=== PATIENT | female | born 1950 | race Caucasian/White ===

== ENCOUNTER 2020-02-19 14:10 | Inpatient (IN) | payer MEDICARE, BC ==
[~2020-02-19] VITALS: Ht 160 cm; Wt 81.8 kg
[2020-02-19] MEDS ORDERED: meclizine 12.5mg tablet PO ONE ×2 (15:05→21:50)
[2020-02-19 15:53] LABS: BASOPHILS % (AUTO) 0.4 % (0-1); EOSINOPHILS # (AUTO) 0.1 X10'3 (0-0.9); EOSINOPHILS % (AUTO) 1.1 % (0-6); HEMOGLOBIN 12.8 g/dl (12.0-16.0); LYMPHOCYTES % (AUTO) 14.2 % (21-51); MEAN CORPUSCULAR HEMOGLOBIN 31.4 PG (27.0-31.0); MEAN CORPUSCULAR HGB CONC 33.6 g/dL (33.0-36.5); MEAN CORPUSCULAR VOLUME 93.6 FL (78-98); MEAN PLATELET VOLUME 6.6 FL (7.4-10.4); MONOCYTES # (AUTO) 0.7 X10'3 (0-0.9); MONOCYTES % (AUTO) 9.3 % (2-12); NEUTROPHILS # (AUTO) 5.4 X10'3 (1.8-7.7); PLATELET COUNT 260 X10'3 (140-440); RED BLOOD COUNT 4.06 X10'6 (4.20-5.60); RED CELL DISTRIBUTION WIDTH 13.5 % (11.5-14.5); WHITE BLOOD COUNT 7.3 X10'3 (4.5-11.0)
[2020-02-19 16:10] LABS: ALANINE AMINOTRANSFERASE 101 U/L (12-78); ALBUMIN 3.8 G/DL (3.4-5.0); ALKALINE PHOSPHATASE 68 IU/L (46-116); ANION GAP 11 (8-16); ASPARTATE AMINO TRANSFERASE 56 U/L (10-37); BILIRUBIN,TOTAL 0.5 MG/DL (0.1-1.0); BLOOD UREA NITROGEN 12 MG/DL (7-18); CALCIUM 9.3 MG/DL (8.5-10.1); CHLORIDE 108 MMOL/L (99-107); CREATININE 0.75 MG/DL (0.40-0.90); GLUCOSE 166 MG/DL (70-104); POTASSIUM 3.9 MMOL/L (3.5-5.1); SODIUM 146 MMOL/L (135-145); TOTAL CARBON DIOXIDE 27.4 MMOL/L (24-32); TOTAL PROTEIN 7.5 G/DL (6.4-8.2); eGFR 77 ML/MIN
[2020-02-19] MEDS ORDERED: proCHLORperazine 10 MG/2 ml inj IV ONE (16:30)
[2020-02-19] MEDS ORDERED: diphenhydrAMINE 50 mg/ml inj IV ONE (16:30)
[2020-02-19] MEDS ORDERED: MECL-183 PO (17:33)
[2020-02-19] MEDS ORDERED: LORazepam 2 mg/ml vial IV ONE (17:55)
--- NOTE | 2020-02-19 20:02 | NUR ---
attempted to perform a gate test on the pt. when she sat up, she felt very dizzy and nauseated, pt is now lying down. she was given compazine and ativan.
--- NOTE | 2020-02-19 21:00 | NUR ---
ATTEMPTED TO DO A GATE TEST ON PT, WHEN I SAT HER UP, SHE FELL BACK INTO THE BED, SHE WAS VERY WEAK. ATTEMPTED A SECOND TIME PT COULDN'T HARDLY SIT UP, SHE HAD TO GRAB ON TO SIDE RAIL AND LAY DOWN QUICKLY.
--- NOTE | 2020-02-19 21:30 | NUR ---
PT'S HUSBANDS PHONE NUMBER IS [phone]
[2020-02-19 22:13] LABS: CLARITY,URINE CLEAR (Clear); COLOR,URINE YELLOW (Yellow); GLUCOSE, URINE NEGATIVE (Neg); KETONES,URINE NEGATIVE (Neg); LEUKOCYTE ESTERASE ,URINE NEGATIVE (Neg); NITRITES, URINE NEGATIVE (Neg); OCCULT BLOOD,URINE SMALL (Neg); PROTEIN,URINE TRACE mg/dl (Neg); UROBILINOGEN,URINE 0.2 E.U/dL (0.2-1.0)
[2020-02-19 22:17] LABS: UA COLLECTION TYPE STRAIGHT CATH
[2020-02-19] MEDS ORDERED: B CO1TAB7 PO (22:19)
[2020-02-19] MEDS ORDERED: BENA10TA74 PO (22:19)
[2020-02-19] MEDS ORDERED: CHOL100025 PO (22:19)
[2020-02-19 22:20] LABS: SQUAMOUS EPITHELIAL CELL,UR MODERATE /LPF (FEW)
[2020-02-19 22:21] LABS: MUCUS STRANDS MANY /LPF (Neg)
[2020-02-19 22:24] LABS: BACTERIA,URINE FEW /HPF (Neg); RBC,URINE 0-2 /HPF (0-2); WBC,URINE 0-4 /HPF (0-4)
[2020-02-19] MEDS ORDERED: magnesium hydroxide 30ml (MOM) UD suspension PO PRN (22:55)
[2020-02-19] MEDS ORDERED: acetaminophen 325mg tablet PO PRN (22:55)
[2020-02-19] MEDS ORDERED: ondansetron/PF 4mg/2ml inj IV PRN (22:55)
[2020-02-19] MEDS ORDERED: mag hydrox/Alum hydrox/simeth 30ml oral suspension PO PRN (22:55)
--- NOTE | 2020-02-20 02:20 | NUR ---
RECEIVED PATIENT TO ROOM 4009C AND ASSUMED PATIENT CARE. PATIENT SLEEPY AT THIS TIME.
[2020-02-20 02:31] VITALS: BP 131/68
[2020-02-20 06:00] VITALS: BP 131/76
--- NOTE | 2020-02-20 06:31 | NUR ---
REPORT GIVEN TO RONNIE LOZADA
[2020-02-20] MEDS ORDERED: lisinopril 10 MG tablet PO SCH (08:00)
[2020-02-20] MEDS: heparin, porcine 5000 units/ml vial SQ SCH ×2 (08:00→20:00)
[2020-02-20] MEDS: meclizine 12.5mg tablet PO SCH ×3 (08:13→16:13)
[2020-02-20] MEDS ORDERED: lisinopril 10 MG tablet PO ONE (10:20)
[2020-02-20 11:00] VITALS: BP 141/76
[2020-02-20 18:00] VITALS: BP 102/52
--- NOTE | 2020-02-20 18:20 | NUR ---
RECEIVED REPORT FROM RONNIE LOZADA AND ASSUMED PATIENT CARE
[2020-02-21] MEDS: meclizine 12.5mg tablet PO SCH ×2 (00:04→08:19)
[2020-02-21 02:00] VITALS: BP 103/50
[2020-02-21 06:00] VITALS: BP 145/79
--- NOTE | 2020-02-21 06:25 | NUR ---
Patient in room ORTHO 4009. I have received report from Aimee and had the opportunity to ask questions and assume patient care.
[2020-02-21] MEDS ORDERED: lisinopril 20mg tablet PO SCH (08:00)
[2020-02-21] MEDS: heparin, porcine 5000 units/ml vial SQ SCH (08:00)
[2020-02-21 10:00] VITALS: BP 128/80
--- NOTE | 2020-02-21 10:56 | NUR ---
PAGER ID: [phone] MESSAGE: Good morning, Tiffanie on neuro, Ms. Molina in 6686C, is inquiring about her discharge. Pt anxious to go home, just tano, thank you
--- NOTE | 2020-02-21 14:06 | NUR ---
Reviewed discharge instructions with pt. Pt verbalized understanding. Pt advised she already made an appt with her primary MD. Pt dressed herself and does not c/o dizziness or nausea at this time. Pt was wheeled downstairs to be driven home by her . All of pt's belongings were returned to pt.
--- NOTE | 2020-02-22 15:15 | NUR ---
Case Management DC follow up: LM/VM post DC status, questions, concerns Addendum: 02/22/20 at 1557 by Claribel Jorgensen RN Case Management DC follow up: spoke to pt via telephone. S/P: N/V, vertigo Reports: feeling,"Not too bad, still a little wobbly" pt is grateful for the care received at [facility]. Denies: acute cp, SOB, resp distress, worsening vertigo, syncope,weakness, blurry vision, N/V, DEVLIN, emergent general pain, abd tenderness/distension, fever. Credits [employer] for helping pt feel better. Verbalizes understanding of s/s that warrant 9-11/ER visit for evaluation. Verbalizes understanding of Rx and why prescribed, resumes current Rx/taking as ordered, no ase r/t polypharmacy. Acknowledges need to schedule/keep follow up appts w/ PCP/Short/telemed 02/25/20, referral for [facility] for PT. Needs met, questions answered at DC, no further questions at this time.
== END 2020-02-21 13:50 | disposition home or self-care (01) | DRG 149 ==
LOC: ER 14:11 → ED HOLD 23:35 → ORTHO 4S 02-20 02:20
PROVIDERS: ADMIT Internal Medicine; ATTEND Family Medicine
DX: H81.10 Benign paroxysmal vertigo, unspecified ear (principal); E87.0 Hyperosmolality and hypernatremia; I10 Essential (primary) hypertension; Z88.5 Allergy status to narcotic agent; Z79.899 Other long term (current) drug therapy
CPT/HCPCS: 36415; 70450; 71045; 80053; 81001; 84484; 85025; 87081; 93005; 97110; 97162; 97530; 99285; G0378; J0780; J1200; J2060; J8597

== ENCOUNTER 2020-08-08 12:56 | Emergency (ER) | payer MEDICARE, BC ==
[~2020-08-08] VITALS: Ht 152.4 cm; Wt 86.0 kg
[~2020-08-08 12:56] MED LIST: B CO1TAB7 PO; BENA10TA74 PO; CHOL100025 PO; MECL-183 PO
[2020-08-08 14:17] LABS: CLARITY,URINE CLEAR (Clear); COLOR,URINE AMBER (Yellow); GLUCOSE, URINE NEGATIVE (Neg); KETONES,URINE 15 mg/dl (Neg); LEUKOCYTE ESTERASE ,URINE NEGATIVE (Neg); NITRITES, URINE NEGATIVE (Neg); OCCULT BLOOD,URINE SMALL (Neg); PROTEIN,URINE NEGATIVE (Neg); UA COLLECTION TYPE CLN CATCH MIDSTREAM
[2020-08-08 14:22] LABS: BASOPHILS # (AUTO) 0.1 X10'3 (0-0.2); BASOPHILS % (AUTO) 0.5 % (0-1); EOSINOPHILS # (AUTO) 0.1 X10'3 (0-0.9); EOSINOPHILS % (AUTO) 0.8 % (0-6); HEMATOCRIT 37.1 % (35.0-45.0); HEMOGLOBIN 12.6 g/dl (12.0-16.0); LYMPHOCYTES # (AUTO) 1.7 X10'3 (1.1-4.8); LYMPHOCYTES % (AUTO) 14.2 % (21-51); MEAN CORPUSCULAR HEMOGLOBIN 32.4 PG (27.0-31.0); MEAN CORPUSCULAR VOLUME 95.3 FL (78-98); MEAN PLATELET VOLUME 7.3 FL (7.4-10.4); MONOCYTES # (AUTO) 1.7 X10'3 (0-0.9); NEUTROPHILS # (AUTO) 8.6 X10'3 (1.8-7.7); NEUTROPHILS % (AUTO) 70.5 % (42-75); PLATELET COUNT 344 X10'3 (140-440); RED CELL DISTRIBUTION WIDTH 12.9 % (11.5-14.5); WHITE BLOOD COUNT 12.2 X10'3 (4.5-11.0)
[2020-08-08 14:24] LABS: BACTERIA,URINE FEW /HPF (Neg); MUCUS STRANDS FEW /LPF (Neg); SQUAMOUS EPITHELIAL CELL,UR FEW /LPF (FEW); WBC,URINE 0-4 /HPF (0-4)
[2020-08-08] MEDS ORDERED: ondansetron/PF 4mg/2ml inj IV ONE (14:35)
[2020-08-08] MEDS ORDERED: morphine 4 MG/ML inj SYRINge IV ONE (14:35)
[2020-08-08 14:37] LABS: ALANINE AMINOTRANSFERASE 84 U/L (12-78); ALBUMIN 3.8 G/DL (3.4-5.0); ALBUMIN/GLOBULIN RATIO 0.9 (1.1-1.5); ALKALINE PHOSPHATASE 72 IU/L (46-116); ANION GAP 10 (8-16); ASPARTATE AMINO TRANSFERASE 42 U/L (10-37); BILIRUBIN,TOTAL 1.4 MG/DL (0.1-1.0); BLOOD UREA NITROGEN 13 MG/DL (7-18); BUN/CREATININE RATIO 16.3 (6.6-38.0); CALCIUM 9.2 MG/DL (8.5-10.1); CHLORIDE 99 MMOL/L (99-107); GLUCOSE 98 MG/DL (70-104); POTASSIUM 3.5 MMOL/L (3.5-5.1); SODIUM 137 MMOL/L (135-145); TOTAL CARBON DIOXIDE 28.5 MMOL/L (24-32); TOTAL PROTEIN 7.9 G/DL (6.4-8.2); eGFR 71 ML/MIN
[2020-08-08 14:44] LABS: LIPASE 145 U/L (73-393); MAGNESIUM 1.6 MG/DL (1.5-2.4)
[2020-08-08 16:18] VITALS: BP 135/68
== END 2020-08-08 16:20 | disposition home or self-care (01) ==
LOC: ER 12:57
DX: R10.10 Upper abdominal pain, unspecified (principal); M54.6 Pain in thoracic spine; R74.8 Abnormal levels of other serum enzymes; K76.0 Fatty (change of) liver, not elsewhere classified; I10 Essential (primary) hypertension; Z88.5 Allergy status to narcotic agent; Z79.899 Other long term (current) drug therapy
CPT/HCPCS: 36415; 71045; 74176; 80053; 81001; 83690; 83735; 83880; 84484; 85025; 93005; 96374; 96375; 99285; J2270; J2405

== ENCOUNTER 2022-11-08 20:13 | Emergency (ER) | payer MEDICARE, BC ==
[~2022-11-08] VITALS: Ht 170.2 cm; Wt 81.8 kg
[~2022-11-08 20:13] MED LIST changes: +GABA300C PO; -MECL-183 PO; +MECL-226 PO
[2022-11-08 20:22] VITALS: BP 127/108
[2022-11-08 20:28] LABS: BASOPHILS # (AUTO) 0.1 X10'3 (0-0.2); BASOPHILS % (AUTO) 0.9 % (0-1); EOSINOPHILS # (AUTO) 0.1 X10'3 (0-0.9); HEMATOCRIT 38.4 % (35.0-45.0); HEMOGLOBIN 12.8 g/dl (12.0-16.0); LYMPHOCYTES # (AUTO) 2.6 X10'3 (1.1-4.8); LYMPHOCYTES % (AUTO) 38.9 % (21-51); MEAN CORPUSCULAR HEMOGLOBIN 31.2 PG (27.0-31.0); MEAN CORPUSCULAR HGB CONC 33.2 g/dL (33.0-36.5); MEAN PLATELET VOLUME 5.8 FL (7.4-10.4); MONOCYTES # (AUTO) 0.6 X10'3 (0-0.9); MONOCYTES % (AUTO) 9.2 % (2-12); NEUTROPHILS # (AUTO) 3.3 X10'3 (1.8-7.7); PLATELET COUNT 253 X10'3 (140-440); RED BLOOD COUNT 4.09 X10'6 (4.20-5.60); RED CELL DISTRIBUTION WIDTH 14.9 % (11.5-14.5); WHITE BLOOD COUNT 6.8 X10'3 (4.5-11.0)
[2022-11-08 20:49] LABS: ALANINE AMINOTRANSFERASE 74 U/L (12-78); ALBUMIN 3.6 G/DL (3.4-5.0); ALBUMIN/GLOBULIN RATIO 0.9 (1.1-1.5); ALKALINE PHOSPHATASE 76 IU/L (46-116); ANION GAP 9 (8-16); ASPARTATE AMINO TRANSFERASE 52 U/L (10-37); BILIRUBIN,TOTAL 0.3 MG/DL (0.1-1.0); BLOOD UREA NITROGEN 14 MG/DL (7-18); BUN/CREATININE RATIO 20.9 (6.6-38.0); CALCIUM 8.6 MG/DL (8.5-10.1); CHLORIDE 108 MMOL/L (99-107); CREATININE 0.67 MG/DL (0.40-0.90); GLUCOSE 124 MG/DL (70-104); MAGNESIUM 1.7 MG/DL (1.5-2.4); POTASSIUM 3.5 MMOL/L (3.5-5.1); SODIUM 143 MMOL/L (135-145); TOTAL CARBON DIOXIDE 26.4 MMOL/L (24-32); TOTAL PROTEIN 7.4 G/DL (6.4-8.2); eGFR 87 ML/MIN
== END 2022-11-09 | disposition left against medical advice (07) ==
LOC: ER 20:14
DX: R07.89 Other chest pain (principal); R06.02 Shortness of breath; Z53.21 Procedure and treatment not carried out due to patient leaving prior to being seen by health care provider
CPT/HCPCS: 36415; 71045; 80053; 83735; 83880; 84484; 85025; 93005

== ENCOUNTER 2024-06-06 20:21 | Inpatient (IN) | payer BC, MEDICARE ==
[~2024-06-06] VITALS: Ht 160 cm; Wt 77.0 kg
[~2024-06-06 20:21] MED LIST changes: +ASPI81TA53 PO; +ATOR10TA PO
[2024-06-06] MEDS: normal saline 1000ml 1,000 ML IV STA (23:11)
[2024-06-06] MEDS: ondansetron/PF 4mg/2ml inj IV STA (23:24)
[2024-06-06 23:26] LABS: BASOPHILS % (AUTO) 0.5 % (0-1); EOSINOPHILS % (AUTO) 0 % (0-6); HEMATOCRIT 41.4 % (35.0-45.0); HEMOGLOBIN 13.9 g/dl (12.0-16.0); LYMPHOCYTES # (AUTO) 1.3 X10'3 (1.1-4.8); LYMPHOCYTES % (AUTO) 15.8 % (21-51); MEAN CORPUSCULAR HEMOGLOBIN 30.7 PG (27.0-31.0); MEAN CORPUSCULAR HGB CONC 33.4 g/dL (33.0-36.5); MEAN CORPUSCULAR VOLUME 91.9 FL (78-98); MEAN PLATELET VOLUME 6.5 FL (7.4-10.4); MONOCYTES # (AUTO) 0.5 X10'3 (0-0.9); MONOCYTES % (AUTO) 6.1 % (2-12); NEUTROPHILS # (AUTO) 6.4 X10'3 (1.8-7.7); NEUTROPHILS % (AUTO) 77.6 % (42-75); PLATELET COUNT 132 X10'3 (140-440); RED BLOOD COUNT 4.51 X10'6 (4.20-5.60); WHITE BLOOD COUNT 8.3 X10'3 (4.5-11.0)
[2024-06-06 23:38] LABS: ALANINE AMINOTRANSFERASE 29 U/L (12-78); ALBUMIN 3.6 G/DL (3.4-5.0); ALKALINE PHOSPHATASE 62 IU/L (46-116); ANION GAP 24 (8-16); ASPARTATE AMINO TRANSFERASE 42 U/L (10-37); BILIRUBIN,TOTAL 1.3 MG/DL (0.1-1.0); BLOOD UREA NITROGEN 22 MG/DL (7-18); BUN/CREATININE RATIO 23.9 (10.0-20.0); CALCIUM 8.3 MG/DL (8.5-10.1); CHLORIDE 99 MMOL/L (99-107); CREATININE 0.92 MG/DL (0.40-0.90); GLUCOSE 72 MG/DL (70-104); POTASSIUM 4.1 MMOL/L (3.5-5.1); SODIUM 142 MMOL/L (135-145); TOTAL CARBON DIOXIDE 19.3 MMOL/L (24-32); TOTAL PROTEIN 7.3 G/DL (6.4-8.2); eCRCL 51 ML/MIN; eGFR 60 ML/MIN
[2024-06-06 23:47] LABS: BILIRUBIN,DIRECT 0.3 MG/DL (0-0.3); ETHANOL 104 MG/DL (<10); PRO BRAIN NATRIURETIC PEPTIDE 1506 PG/ML (0-125)
[2024-06-07] VITALS (11 sets, daily range): BP systolic 101–124; BP diastolic 49–77; PULSE 77–107; RESP 16–21; TEMP 97.5–98.9; O2SAT 95–98
[2024-06-07] MEDS: diltiazem 5mg/ml 5ml inj. IV STA (00:25)
[2024-06-07] MEDS: diltiazem 5mg/ml 5ml inj. IV ONE (00:36)
[2024-06-07] MEDS: diltiazem-NS 100mg/100ml 100 ML IV SCH (01:00)
[2024-06-07] MEDS ORDERED: morphine 2 MG/ML inj. syringe IV PRN (01:05)
[2024-06-07] MEDS ORDERED: magnesium Cl slow-release 64mg tablet PO PRN (01:05)
[2024-06-07] MEDS ORDERED: potassium Cl 40MEQ/1/2NS 520ml 520 ML IV PRN (01:05)
[2024-06-07] MEDS ORDERED: PERFLUTREN PROTEIN-A MICROSPHR (Optison) 0.22 MG/ML 3ML VIAL IV PRN (01:05)
[2024-06-07] MEDS ORDERED: magnesium hydroxide 30ml (MOM) UD suspension PO PRN (01:05)
[2024-06-07] MEDS ORDERED: mag hydrox/Alum hydrox/simeth 30ml oral suspension PO PRN (01:05)
[2024-06-07] MEDS ORDERED: ondansetron/PF 4mg/2ml inj IV PRN (01:05)
[2024-06-07] MEDS ORDERED: potassium Cl 20 mEq SR tablet PO PRN (01:05)
[2024-06-07] MEDS: apixaban 5mg tablet PO SCH (01:55)
[2024-06-07 01:56] LABS: INR 1.1 INR
[2024-06-07] MEDS: normal saline 1000ml 1,000 ML IV SCH (01:58)
[2024-06-07 02:39] LABS: POTASSIUM 3.9 MMOL/L (3.5-5.1)
[2024-06-07 02:45] LABS: MAGNESIUM 0.7 MG/DL (1.5-2.4)
[2024-06-07] MEDS: magnesium sulf-water 4G/100mL 100 ML IV PRN (03:02)
[2024-06-07] MEDS: hydrALAZINE 20mg/ml inj. IV SCH (03:27)
[2024-06-07] MEDS: LORazepam 2 mg/ml vial IV ONE (04:19)
[2024-06-07] MEDS: magnesium sulf-water 2g/50mL 50 ML IV PRN (06:49)
[2024-06-07] MEDS: docusate sod 100mg capsule PO SCH (07:57)
[2024-06-07] MEDS: K and/or MAG REPLACEMENT MC SCH (07:57)
[2024-06-07] MEDS ORDERED: hydrALAZINE 20mg/ml inj. IV PRN (08:45)
[2024-06-07 09:31] LABS: BILIRUBIN,URINE NEGATIVE (Neg); CLARITY,URINE CLEAR (Clear); COLOR,URINE YELLOW (Yellow); GLUCOSE, URINE NEGATIVE (Neg); KETONES,URINE >=80 mg/dl (Neg); LEUKOCYTE ESTERASE ,URINE NEGATIVE (Neg); NITRITES, URINE NEGATIVE (Neg); OCCULT BLOOD,URINE MODERATE (Neg); PROTEIN,URINE 100 mg/dl (Neg); UROBILINOGEN,URINE 0.2 E.U/dL (0.2-1.0)
[2024-06-07 09:35] LABS: UA COLLECTION TYPE NON-SPECIFIED
[2024-06-07 09:36] LABS: SQUAMOUS EPITHELIAL CELL,UR MANY /LPF (FEW)
[2024-06-07 09:37] LABS: HYALINE CASTS 0-3 /LPF (NEGATIVE); RBC,URINE 20-50 /HPF (0-2)
[2024-06-07 09:38] LABS: AMORPHOUS URATES 1+; BACTERIA,URINE 1+ /HPF (Neg); TRANSITIONAL EPI CELLS,URINE FEW /HPF; WBC,URINE 0-4 /HPF (0-4)
[2024-06-07 09:58] LABS: URINE AMPHETAMINE SCREEN NEGATIVE (Neg); URINE BARBITUATE SCREEN NEGATIVE (Neg); URINE BENZODIAZEPINES SCREEN NEGATIVE (Neg); URINE CANNABINOID SCREEN NEGATIVE (Neg); URINE COCAINE SCREEN NEGATIVE (Neg); URINE METHADONE SCREEN NEGATIVE (Neg); URINE OPIATE SCREEN NEGATIVE (Neg); URINE PHENCYCLIDINE SCREEN NEGATIVE (Neg)
[2024-06-08] VITALS (8 sets, daily range): BP systolic 101–130; BP diastolic 58–74; PULSE 54–102; RESP 13–17; TEMP 96.9–98.2; O2SAT 96–100
[2024-06-08 06:57] LABS: BASOPHILS % (AUTO) 0.4 % (0-1); EOSINOPHILS # (AUTO) 0.1 X10'3 (0-0.9); HEMATOCRIT 34.5 % (35.0-45.0); HEMOGLOBIN 11.7 g/dl (12.0-16.0); LYMPHOCYTES # (AUTO) 1.6 X10'3 (1.1-4.8); LYMPHOCYTES % (AUTO) 20.7 % (21-51); MEAN CORPUSCULAR HEMOGLOBIN 31.3 PG (27.0-31.0); MEAN CORPUSCULAR HGB CONC 33.8 g/dL (33.0-36.5); MEAN CORPUSCULAR VOLUME 92.6 FL (78-98); MONOCYTES # (AUTO) 0.8 X10'3 (0-0.9); MONOCYTES % (AUTO) 10.1 % (2-12); NEUTROPHILS # (AUTO) 5.3 X10'3 (1.8-7.7); NEUTROPHILS % (AUTO) 67.8 % (42-75); PLATELET COUNT 112 X10'3 (140-440); RED BLOOD COUNT 3.72 X10'6 (4.20-5.60); RED CELL DISTRIBUTION WIDTH 13.7 % (11.5-14.5); WHITE BLOOD COUNT 7.8 X10'3 (4.5-11.0)
[2024-06-08 07:13] LABS: ALANINE AMINOTRANSFERASE 31 U/L (12-78); ALBUMIN 3.3 G/DL (3.4-5.0); ALKALINE PHOSPHATASE 47 IU/L (46-116); ANION GAP 9 (8-16); ASPARTATE AMINO TRANSFERASE 39 U/L (10-37); BILIRUBIN,TOTAL 1.4 MG/DL (0.1-1.0); BLOOD UREA NITROGEN 11 MG/DL (7-18); BUN/CREATININE RATIO 14.7 (10.0-20.0); CALCIUM 7.5 MG/DL (8.5-10.1); CHLORIDE 103 MMOL/L (99-107); CREATININE 0.75 MG/DL (0.40-0.90); GLUCOSE 100 MG/DL (70-104); MAGNESIUM 2.1 MG/DL (1.5-2.4); POTASSIUM 3.5 MMOL/L (3.5-5.1); SODIUM 138 MMOL/L (135-145); TOTAL CARBON DIOXIDE 26.3 MMOL/L (24-32); TOTAL PROTEIN 6.6 G/DL (6.4-8.2); eCRCL 55 ML/MIN; eGFR 76 ML/MIN
[2024-06-08] MEDS: carVEDilol 3.125mg tablet PO SCH (10:43)
[2024-06-08] MEDS: acetaminophen 325mg tablet PO PRN (22:05)
[2024-06-09 02:00] VITALS: BP 121/69; PULSE 87; RESP 17; TEMP 98; O2SAT 97
[2024-06-09] MEDS: acetaminophen 325mg tablet PO PRN (05:58)
[2024-06-09 06:00] VITALS: BP 102/70; PULSE 80; RESP 16; TEMP 97.9; O2SAT 98
[2024-06-09] MEDS: aspirin 81mg tab.chew PO SCH (07:53)
[2024-06-09] MEDS: atorvastatin 10mg tablet PO SCH (07:55)
[2024-06-09 08:00] VITALS: RESP 16; O2SAT 98
[2024-06-09 08:03] VITALS: BP_SYST 125; PULSE 94
[2024-06-09] MEDS: losartan 25mg tablet PO SCH (08:03)
[2024-06-09 08:31] LABS: BASOPHILS % (AUTO) 0.4 % (0-1); EOSINOPHILS # (AUTO) 0.1 X10'3 (0-0.9); EOSINOPHILS % (AUTO) 1.4 % (0-6); HEMATOCRIT 33.6 % (35.0-45.0); HEMOGLOBIN 11.3 g/dl (12.0-16.0); LYMPHOCYTES # (AUTO) 1.5 X10'3 (1.1-4.8); LYMPHOCYTES % (AUTO) 21.2 % (21-51); MEAN CORPUSCULAR HGB CONC 33.7 g/dL (33.0-36.5); MEAN CORPUSCULAR VOLUME 92.2 FL (78-98); MEAN PLATELET VOLUME 7.3 FL (7.4-10.4); MONOCYTES # (AUTO) 0.8 X10'3 (0-0.9); MONOCYTES % (AUTO) 10.4 % (2-12); NEUTROPHILS # (AUTO) 4.9 X10'3 (1.8-7.7); NEUTROPHILS % (AUTO) 66.6 % (42-75); PLATELET COUNT 103 X10'3 (140-440); RED BLOOD COUNT 3.65 X10'6 (4.20-5.60); RED CELL DISTRIBUTION WIDTH 13.6 % (11.5-14.5); WHITE BLOOD COUNT 7.3 X10'3 (4.5-11.0)
[2024-06-09 09:00] LABS: ALANINE AMINOTRANSFERASE 30 U/L (12-78); ALBUMIN 3.2 G/DL (3.4-5.0); ALKALINE PHOSPHATASE 48 IU/L (46-116); ANION GAP 10 (8-16); ASPARTATE AMINO TRANSFERASE 36 U/L (10-37); BLOOD UREA NITROGEN 7 MG/DL (7-18); BUN/CREATININE RATIO 12.3 (10.0-20.0); CALCIUM 7.9 MG/DL (8.5-10.1); CHLORIDE 104 MMOL/L (99-107); CREATININE 0.57 MG/DL (0.40-0.90); GLUCOSE 101 MG/DL (70-104); MAGNESIUM 1.8 MG/DL (1.5-2.4); POTASSIUM 3.1 MMOL/L (3.5-5.1); SODIUM 141 MMOL/L (135-145); TOTAL CARBON DIOXIDE 26.9 MMOL/L (24-32); TOTAL PROTEIN 6.5 G/DL (6.4-8.2); eCRCL 73 ML/MIN; eGFR > 90 ML/MIN
[2024-06-09] MEDS ORDERED: COR3.125T PO (09:26)
[2024-06-09] MEDS ORDERED: BENA10TA74 PO (09:26)
[2024-06-09] MEDS ORDERED: APIX5TAB3 PO (09:26)
[2024-06-09] MEDS ORDERED: GABA300C PO (09:26)
[2024-06-09] MEDS: potassium Cl 20 mEq SR tablet PO PRN (10:41)
[2024-06-09] MEDS: potassium Cl 20 mEq SR tablet PO STA (13:45)
[2024-06-09] MEDS ORDERED: POTA-207 PO (16:41)
== END 2024-06-09 13:55 | disposition home or self-care (01) | DRG 310 ==
LOC: ER 20:22 → ED HOLD 06-07 01:15 → EDBEDREQTM 06-07 09:49 → PCU 3S 06-07 10:52
PROVIDERS: ADMIT Internal Medicine Pulmonary Disease; ATTEND Family Medicine
DX: I48.20 Chronic atrial fibrillation, unspecified (principal); E83.42 Hypomagnesemia; F10.20 Alcohol dependence, uncomplicated; E87.6 Hypokalemia; I10 Essential (primary) hypertension; Z79.899 Other long term (current) drug therapy; Z79.82 Long term (current) use of aspirin; Z90.710 Acquired absence of both cervix and uterus; Z87.891 Personal history of nicotine dependence; Z86.73 Personal history of transient ischemic attack (TIA), and cerebral infarction without residual deficits; Z88.5 Allergy status to narcotic agent
CPT/HCPCS: 36415; 70450; 71045; 72125; 80048; 80053; 80076; 80305; 80320; 81001; 82948; 83735; 83880; 84132; 84484; 85025; 85610; 93005; 93306; 96374; 96375; 99285; A6258; G0378; J2405; J3475; J3490; J7030